=== PATIENT | male | born 1985 | race Two or more races ===

== ENCOUNTER 2020-11-07 17:45 | Emergency (ER) | payer MEDICAID, OTHER ==
[~2020-11-07] VITALS: Ht 162.6 cm; Wt 135.6 kg
[2020-11-07 17:45] VITALS: BP 132/88
== END 2020-11-07 19:05 | disposition home or self-care (01) ==
LOC: ER 17:45
DX: S63.91XA Sprain of unspecified part of right wrist and hand, initial encounter (principal); S50.862A Insect bite (nonvenomous) of left forearm, initial encounter; E11.9 Type 2 diabetes mellitus without complications; R60.0 Localized edema; E66.9 Obesity, unspecified; Z68.43 Body mass index [BMI] 50.0-59.9, adult; W23.0XXA Caught, crushed, jammed, or pinched between moving objects, initial encounter; Y93.89 Activity, other specified; Y92.89 Other specified places as the place of occurrence of the external cause; Y99.8 Other external cause status
CPT/HCPCS: 73120